=== PATIENT | female | born 1980 | race Hispanic/Latino ===

== ENCOUNTER 2018-10-02 04:56 | Emergency (ER) | payer BC ==
[2018-10-02] MEDS ORDERED: Benzonatate 100 MG CAP ONE (05:39)
[2018-10-02] MEDS ORDERED: predniSONE 20 MG TAB ONE (05:48)
== END 2018-10-02 05:55 | disposition home or self-care (01) ==
LOC: NAV ERS 04:56
DX: J45.909 Unspecified asthma, uncomplicated (principal); E66.9 Obesity, unspecified; I10 Essential (primary) hypertension; Z79.899 Other long term (current) drug therapy
CPT/HCPCS: 94640; J7506; J7620

== ENCOUNTER 2019-11-16 00:42 | Emergency (ER) | payer BC ==
[2019-11-16] MEDS ORDERED: predniSONE 20 MG TAB ONE (01:38)
[2019-11-16] MEDS ORDERED: Azithromycin 250 MG TAB ONE (01:38)
== END 2019-11-16 02:00 | disposition home or self-care (01) ==
LOC: NAV ERS 00:42
DX: J98.01 Acute bronchospasm (principal); I10 Essential (primary) hypertension; E66.9 Obesity, unspecified; Z79.899 Other long term (current) drug therapy
CPT/HCPCS: 94640; J7512; J7620